=== PATIENT | female | born 1990 | race Caucasian/White ===

== ENCOUNTER 2023-02-08 08:40 | Outpatient (CLI) | payer OTHER | END 2023-02-08 08:57 | disposition home or self-care (01) | LOC: SONOGRAMA 08:40 | DX: M65.832 Other synovitis and tenosynovitis, left forearm (principal); M65.842 Other synovitis and tenosynovitis, left hand ==

== ENCOUNTER 2023-03-31 10:46 | Emergency (ER) | payer OTHER ==
[~2023-03-31] VITALS: Ht 165.1 cm; Wt 69.9 kg
== END 2023-03-31 15:08 | disposition home or self-care (01) ==
LOC: ER 10:46
DX: N93.8 Other specified abnormal uterine and vaginal bleeding (principal)

== ENCOUNTER 2025-02-18 11:44 | Emergency (ER) | payer OTHER ==
[~2025-02-18] VITALS: Ht 165.1 cm; Wt 71.7 kg
[2025-02-18] MEDS ORDERED: KETOROLAC TROMETHAMINE 30 MG VIAL IV STA (12:21)
[2025-02-18] MEDS ORDERED: OxyCODONE HCL/APAP UD (PERCOCET) PO STA (12:22)
[2025-02-18] MEDS ORDERED: HYOSCYAMINE SULFATE 0.125 MG TAB.SUBL SL ONE (12:30)
[2025-02-18 12:52] LABS: MEAN CELL VOLUME 70.2 fL (80.00-100.00); MEAN CORPUSCULAR HEMOGLOBIN 21.8 pg (27.00-32.0); MEAN CORPUSCULAR HGB CONC 31.2 g/dl (32.0-36.0); PLATELET COUNT 338 K/uL (150-450); RED BLOOD COUNT 4.57 M/uL (4.00-6.00); RED CELL DISTRIBUTION WIDTH 17.7 % (11.5-14.5)
[2025-02-18 13:04] LABS: CALCIUM 8.8 mg/dL (8.5-10.1); CREATININE SERUM 0.64 mg/dL (0.55-1.02); GFR 105.6; POTASSIUM 4.24 mEq/L (3.5-5.1)
[2025-02-18 13:34] LABS: URINE APPEARANCE Clear; URINE BILIRRUBIN Negative (NEGATIVE); URINE BLOOD Negative; URINE COLOR Yellow; URINE GLUCOSE Negative (NEGATIVE); URINE KETONE Negative (NEGATIVE); URINE LEUKOCYTE Negative; URINE NITRATE Negative; URINE PROTEIN Negative (NEGATIVE); URINE UROBILINOGEN 0.2 E.U./dl
[2025-02-18 13:37] LABS: URINE BACTERIA 46.4 uL (0.0-1933); URINE EPITHELIAL CELLS 1.8 uL (0.0-38.8)
[2025-02-18 13:39] LABS: URINE RBC 1.3 uL (0.0-20.8)
[2025-02-18 13:40] LABS: URINE WBC 1.4 uL (0.0-23.2)
== END 2025-02-18 14:33 | disposition home or self-care (01) ==
LOC: ER 11:45
DX: R10.9 Unspecified abdominal pain (principal)